=== PATIENT | female | born 1980 | race Hispanic/Latino ===

== ENCOUNTER 2020-05-30 13:57 | Emergency (ER) | payer MEDICAID, SELFPAY | END 2020-05-30 15:00 | disposition home or self-care (01) | LOC: ERS 13:57 | DX: L72.3 Sebaceous cyst (principal) | CPT/HCPCS: 99283 ==

== ENCOUNTER 2020-06-19 20:48 | Emergency (ER) | payer SELFPAY ==
[2020-06-19] MEDS ORDERED: Naloxone HCl 0.4 mg/ml Vial ONE (22:40)
== END 2020-06-19 22:10 | disposition home or self-care (01) ==
LOC: ERS 20:48
DX: L72.3 Sebaceous cyst (principal)
CPT/HCPCS: 99281; J2310